=== PATIENT | female | born 2000 | race African-American/Black ===

== ENCOUNTER 2023-09-21 13:30 | Emergency (ER) | payer BC ==
[2023-09-21] MEDS ORDERED: Ondansetron ODT 4 MG TAB ONE (13:58)
[2023-09-21] MEDS ORDERED: Ketorolac Tromethamine 30 MG (1 mL) VIAL ONE (13:58)
== END 2023-09-21 14:38 | disposition home or self-care (01) ==
LOC: MADERS 13:30
DX: S06.0X9A Concussion with loss of consciousness of unspecified duration, initial encounter (principal); W18.30XA Fall on same level, unspecified, initial encounter
CPT/HCPCS: 70450; 96372; J1885; Q0162